=== PATIENT | female | born 1960 | race Caucasian/White ===

== ENCOUNTER 2020-08-12 17:12 | Emergency (ER) | payer OTHER ==
[~2020-08-12] VITALS: Ht 162.6 cm; Wt 111.8 kg
[2020-08-12 18:02] LABS: BASOPHILS % (AUTO) 0 % (0-1); EOSINOPHILS % (AUTO) 2 % (1-7); LYMPHOCYTES % (AUTO) 30 % (22-44); MEAN CORPUSCULAR HEMOGLOBIN 29.1 pg (27.0-34.8); MEAN CORPUSCULAR HGB CONC 33.2 g/dL (32.4-35.8); MEAN PLATELET VOLUME 8.1 fL (7.4-10.4); MONOCYTES % (AUTO) 9 % (2-9); NEUTROPHILS % (AUTO) 58 % (42-75); PLATELET COUNT 258 x10^3/uL (130-400); RED BLOOD COUNT 4.76 x10^6/uL (3.82-5.3); RED CELL DISTRIBUTION WIDTH 14.3 % (9.6-15.2)
[2020-08-12 18:06] LABS: MD NO
[2020-08-12 18:13] LABS: CALCIUM 8.8 mg/dL (8.5-10.1); CHLORIDE 112 mmol/L (98-107)
[2020-08-12 18:23] LABS: ALANINE AMINOTRANSFERASE 64 U/L (12-78); ALBUMIN 3.7 g/dL (3.4-5.0); ALKALINE PHOSPHATASE 120 U/L (45-117); ANION GAP 6 mmol/L (5-15); BILIRUBIN,TOTAL 0.6 mg/dL (0.2-1.0); CREATININE 0.75 mg/dL (0.55-1.02); TOTAL PROTEIN 6.9 g/dL (6.4-8.2)
--- NOTE | 2020-08-12 18:33 | NUR ---
PT TO RM FROM [facility]OBBY
--- NOTE | 2020-08-12 18:36 | NUR ---
PT AMBULATED TO ROOM FROM [facility]. PT STATED THAT ON MONDAY SHE WAS VOMITING ALL DAY AND HAD DIARRHEA. SINCE THEN, PT HAS HAD BRIGHT RED BLOOD IN TOILET AFTER BM. PT STILL HAVING DIARRHEA. PT DENIES ANY PAIN, FEVER OR VOMITNG TODAY. PT AMBULATED TO RESTROOM TO PROVIDE URINE AND STOOL SAMPLE.
[2020-08-12 19:15] LABS: MICROSCOPIC AUTO
--- NOTE | 2020-08-12 19:31 | NUR ---
PT RESTING IN RWACCABUC COMFORTABLY. CALL LIGHT WITHIN REACH.
[2020-08-12 19:33] LABS: OCCULT BLOOD POSITIVE (NEGATIVE)
[2020-08-12 19:59] LABS: STOOL FOR LEUKOCYTES NONE SEEN (NEGATIVE)
[2020-08-12] MEDS ORDERED: SODIUM CHLORIDE FLUSH 10ML SYR IVF ONE (20:00)
[2020-08-12] MEDS ORDERED: SODIUM CHLORIDE 0.9% 1,000ML IVBOLUS ONE (20:00)
[2020-08-12 20:21] LABS: CLOSTRIDIUM DIFFICILE ANTIGEN NEGATIVE; CLOSTRIDIUM DIFFICILE TOXIN NEGATIVE (Negative)
--- NOTE | 2020-08-12 20:22 | NUR ---
PT AMBULATED TO RESTROOM.
--- NOTE | 2020-08-12 20:52 | NUR ---
report recieved from [email or web address]
[2020-08-12] MEDS ORDERED: OMNIPAQUE 350 MG/ML, 100ML BOTTLE ONE (21:19)
[2020-08-12 23:01] VITALS: BP 134/78
== END 2020-08-12 23:23 | disposition home or self-care (01) ==
LOC: ED 19:55
DX: K62.5 Hemorrhage of anus and rectum (principal); R19.7 Diarrhea, unspecified; R10.32 Left lower quadrant pain
CPT/HCPCS: 36415; 74177; 80053; 81001; 82272; 83690; 85025; 87086; 87324; 89055; 96360; 99285; J7030; Q9967